=== PATIENT | male | born 1945 | race Caucasian/White ===

== ENCOUNTER 2025-01-07 09:00 | Emergency (ER) | payer OTHER, SELFPAY ==
[2025-01-07 09:07] VITALS: BP 161/54; BMI 24.9
--- NOTE | 2025-01-07 09:08 | ED.GENMED ---
History of Present Illness
General
Chief Complaint: Fainting/Passed Out
Source: patient and ambulance crew
Exam Limitations: none
Time Seen by Provider: 01/07/25 09:01
History of Present Illness
History of Present Illness:
See MDM
Past History
Past History
ED Past Medical History: CAD, HTN and Hypercholesterolemia
ED Past Surgical History: Cardiac (CABG 2011) and Cholecystectomy
Social History
Tobacco: Non-smoker
Alcohol: None
Personal:
Living: with family
Phy Exam
Physical Exam
Physical Exam:
See MDM
Course
Orders/Labs/Results
Orders:
Orders
01/07/25 09:06
CT Head W/o Iv Contrast Urgent
Comment:
Reason For Exam: fall, posterior head injury
0.9% Sodium Chloride 1000 ml [Nss] 1,000 ml IV BOLUS
01/07/25 09:07
Electrocardiogram (*1) Urgent
Reason for Study: Syncope
EKG- Treatment ONCE
Lumbar Spine, 2 or 3 View [CR Lumbar Spine 2 Or 3 Views] Urgent
Comment:
Reason For Exam: fall, low back pain
01/07/25 09:09
Complete Blood Count/With Diff Urgent
Comprehensive Metabolic Panel Urgent
01/07/25 09:48
Morphine Sulfate 4 mg IV NOW STA
Abnormal Lab Results
01/07/25
09:09
WBC 13.4 H 10^3/uL
(4.8-10.8)
RBC 4.17 L 10^6/uL
(4.70-6.10)
Hgb 12.5 L g/dL
(13.0-18.0)
Hct 37.7 L %
(39.0-52.0)
Abs Immat Gran (auto) 0.1 H 10^3/uL
(0-0.05)
Absolute Neuts (auto) 11.5 H 10^3/uL
(1.4-6.5)
Absolute Lymphs (auto) 1.0 L 10^3/uL
(1.2-3.4)
Absolute Monos (auto) 0.7 H 10^3/uL
(0.1-0.6)
Immature Gran % 0.6 H %
(0-0.5)
Neutrophils % 85.9 H %
(42.2-75.2)
Lymphocytes % 7.5 L %
(20.5-51.1)
Chloride 108 H mmol/L
(98-107)
BUN 34 H mg/dl
(9-20)
Glucose 151 H mg/dl
(70-99)
01/07/25 09:09
01/07/25 09:09
Vital Signs
Initial and Last Documented VS:
Initial Vital Signs
Temp Pulse Resp BP Pulse Ox
97.5 F 62 18 161/54 99
01/07/25 09:07 01/07/25 09:07 01/07/25 09:07 01/07/25 09:07 01/07/25 09:07
Last Documented Vital Signs
Temp Pulse Resp BP Pulse Ox
97.5 F 63 13 142/61 96
01/07/25 09:07 01/07/25 10:00 01/07/25 10:00 01/07/25 10:00 01/07/25 09:21
Procedures
Laceration Closure
Right Posterior Scalp:
Status of Wound: clean
Size of Wound in cm: 3
Description of Wound Edges: sharp
Preparation: cleaned with soap & water
Anesthesia: 1% Lidocaine
Revision/Debridement: routine- no revision
Wound exploration: explored to base- no FB
Type of Closure: single layer closure
Skin Closure Material: 4-0 vicryl
MDM/Problems Addressed
Differential Diagnosis Includes:
Note:
CHIEF COMPLAINT(S)
- Fall with head injury
HISTORY OF PRESENT ILLNESS
The patient is a 79-year-old male who experienced two syncopal episodes. The first episode occurred around 3:30 a.m. as he was getting up from the toilet. He fell and struck his head. He noted no use of blood thinners. A second syncopal episode
happened around 8:00 a.m. when he bent down to pickle sorter a cat bowl, which may have resulted in another head impact, although the patient is unsure which episode caused a notable cut on his head. The patient reported feeling dehydrated, attributed to
frequent urination caused by an enlarged prostate, which he previously had radiation treatment for. He described his urination pattern as occurring every two and a half hours. The patient denied recent illness or drinking water adequately. He also
complained of lower back pain on the right side after the falls. A murmur was noted and is part of his medical history.
ADDITIONAL HISTORY OBTAINED FROM SOURCES OTHER THAN THE PATIENT
- Per healthcare provider, the patient experienced syncopal episodes, initially getting up from the bathroom and then when bending over.
PHYSICAL EXAM
General: Alert, no acute distress.
Skin: Warm, dry.
Head: 2 cm superficial laceration to posterior scalp
Neck: supple, trachea midline.
Eyes, Ears, Nose, Mouth, and Throat: Mildly dry mucous membranes. Regular in rhythm. Murmur noted
Cardiovascular: No signs of cyanosis
Respiratory: Respirations are non-labored.
Abdomen: Non-distended
Back: Mild paralumbar muscular tenderness without midline tenderness
Musculoskeletal: No deformities
Neurological: No focal neurological deficit observed.
Psychiatric: Cooperative, appropriate mood and affect.
PROBLEM LIST
- Acute: Syncope, head injury, dehydration, lower back pain
- Chronic: Enlarged prostate post-radiation
PLAN
- Administer intravenous fluids to address dehydration.
- Conduct laboratory tests, including blood work.
- Obtain an electrocardiogram (EKG) to assess cardiac function.
- Evaluate head injury severity and consider imaging as needed.
- Address lower back pain with appropriate interventions.
DIFFERENTIAL DIAGNOSIS
The Differential Diagnosis includes, in no particular order and is not limited to:
- Orthostatic hypotension
- Dehydration secondary to frequent urination
- Cardiac arrhythmia
- Vasovagal syncope
- Vestibular dysfunction
- Neurological event (e.g., transient ischemic attack)
- Head trauma complications
- Urinary tract infection
- Medication side effects
- Electrolyte imbalance
*Pulse Oximetry
Patient hypoxic: no
*Critical Care Note
Total Time (30-74mins, 75-104mins- exclusive of procedures): Not Applicable
Update Note
Update Note:
CT head negative. Patient feeling better after IV fluids. We discussed lab abnormalities which are somewhat consistent with his expected dehydration. We did discuss the importance of primary care follow-up. Will write for pain medicine. Lumbar
x-ray shows arthritic changes without acute pathology. Patient feels very comfortable going home and understands return precautions. We discussed that the stitches will dissolve on their own
ED Attending Note
-
Portions of this chart may have been created with voice recognition software.� Occasional wrong word or��sound alike� substitutions may have occurred due to the inherent limitations of voice recognition software.
Discharge Plan
Departure
Patient Disposition: Home (Routine Discharge)
Date of Disposition: 01/07/25
Time of Disposition: 10:49
Patient with high blood pressure during this ER visit?: Yes
Discharge Problem:
Dehydration
Instructions: Syncope (Fainting) (DC), BLOOD PRESSURE
Prescriptions:
New
tramadol 50 mg tablet
50 mg PO BID PRN (Reason: pain) Qty: 14 0RF
No Action
metoprolol succinate 50 MG tablet extended release 24 hr
50 mg PO QPM
tamsulosin 0.4 MG capsule
0.4 mg PO QPM
rosuvastatin 20 MG tablet
40 mg PO QPM
coenzyme [id number] E 1 CAP capsule
100 mg PO QPM
Clobetasol Cream .05%
1 ea topical DAILY PRN (Reason: psoriasis)
Ecotrin
81 mg PO QPM
Vitamin D3
2,000 int.units PO QPM
celecoxib 200 MG capsule
200 mg PO DAILY
lisinopril 5 MG tablet
5 mg PO DAILY
solifenacin 5 MG tablet
5 mg PO DAILY
Referrals:
Chrissy Palmer DO [Family Provider, Family Practice]
Activity Restrictions/Additional Instructions:
Please return for any worsening symptoms.
You may return at any time if you have further concerns.
Please follow up with your doctor at the first available appointment, preferably this week.
Thank you for choosing [facility].
Interventions
Interventions:
*Risk Screen - Suicide Last Done: 01/07/25 09:07
*General Assessment Last Done: 01/07/25 09:07
*Neglect/Abuse Screening Last Done: 01/07/25 09:07
*ED- Fall Risk Assessment Last Done: 01/07/25 09:07
*ED COVID-19 Vaccine History Last Done: 01/07/25 09:07
ED- Cardiac Assessment Last Done: 01/07/25 09:47
ED- Neurological Assessment Last Done: 01/07/25 09:47
Discharge Date and Time
Print Language: ALBANIAN
[2025-01-07] MEDS: NSS 1000 IV (09:23)
[2025-01-07 09:26] LABS: Hematocrit 37.7 % (39.0-52.0); Hemoglobin 12.5 g/dL (13.0-18.0); Mean Corp Hgb Conc. 33.2 g/dL (33.0-37.0); Mean Corpuscular Volume 90.4 fL (80.0-94.0); Nucleated Red Blood Cells % 0 % (-); Platelet Count 176 10^3/uL (130-400); Red Cell Dist. Width 13.0 % (11.5-14.5)
[2025-01-07 09:38] LABS: ALT (SGPT) 43 U/L (0-50); AST (SGOT) 40 U/L (17-59); Albumin 4.3 g/dl (3.5-5.0); Alkaline Phosphatase 40 U/L (38-126); Blood Urea Nitrogen 34 mg/dl (9-20); Calcium 10.0 mg/dl (8.4-10.2); Carbon Dioxide 26 mmol/L (22-30); Chloride 108 mmol/L (98-107); Estimated Creatinine Clearance 62 ml/min; Glucose 151 mg/dl (70-99); Potassium 4.5 mmol/L (3.5-5.1); Sodium 140 mmol/L (135-145); Total Protein 6.8 g/dl (6.3-8.2); eGFR > 60.00
[2025-01-07 09:41] VITALS: BP 174/75
--- NOTE | 2025-01-07 09:47 | EDRN ---
Patient back from imaging and complains of pain, reports mainly in his back, Dr. Mcgregor aware.
[2025-01-07] MEDS: MORPHINE SULFATE 4 MG IV (09:52)
[2025-01-07 10:00] VITALS: BP 142/61
[2025-01-07 11:00] VITALS: BP 165/71
--- NOTE | 2025-01-07 11:13 | EDRN ---
Patient was able to walk into the bathroom and back out with no assistance and to be discharged home.
== END 2025-01-07 11:14 | disposition home or self-care (01) ==
LOC: EMR 09:00
PROVIDERS: EMERGENCY PHYSICIAN Student in an Organized Health Care Education/Training Program; FAMILY PHYSICIAN Family Medicine
DX: E86.0 Dehydration (principal); S01.01XA Laceration without foreign body of scalp, initial encounter; I25.810 Atherosclerosis of coronary artery bypass graft(s) without angina pectoris; I10 Essential (primary) hypertension; E78.00 Pure hypercholesterolemia, unspecified; R01.1 Cardiac murmur, unspecified; N40.1 Benign prostatic hyperplasia with lower urinary tract symptoms; R35.0 Frequency of micturition; M47.816 Spondylosis without myelopathy or radiculopathy, lumbar region; Z95.1 Presence of aortocoronary bypass graft; W01.10XA Fall on same level from slipping, tripping and stumbling with subsequent striking against unspecified object, initial encounter; Y92.002 Bathroom of unspecified non-institutional (private) residence as the place of occurrence of the external cause
CPT/HCPCS: 99284; 12002; 96374; 96361; 70450; 72100; 80053; 85025; 93005